=== PATIENT | female | born 1955 | race African-American/Black ===

== ENCOUNTER → 2016-06-03 | Day surgery (SDC) | payer SELFPAY ==
[~2016-06-03] MED LIST: ACETAMINOPHEN PO; ALBUTEROL17 GM; ALBUTEROL17 GM INH; ANTIVERT PO; ASPIRIN PO; ASPIRIN81 M2 PO; AZITHROMYCIN500 MG PO; BACTROBAN15 GM TOP; CARAFATE PO; ELIMITE60 GM TOP; FAMOTIDINE; FLEXERIL PO; HCTZ; HCTZ PO; HYDROCHLOROTHIA25 MG PO; K-TAB ER20 MEQ PO; KEFLEX PO; LISINOPRIL; LORTAB 5/500 TA1 TA1 PO; MEDROL4 MG/DOSE- PO; MICRO-K PO; PEPCID AC20 MG PO; PEPCID40 MG PO; PHENERGAN DM1 ML PO; PRILOSEC PO; RED CLOVER; TAMIFLU75 M1 PO; TRICOR PO; TYLENOL #3 PO; VICODIN 5/1 TAB 5/50 PO; WALGREENS PHARMACY
--- NOTE | ~2016-06-03 | OR ---
Unit #: [id number] #: [id number] Patient: MERVIN PORTILLO [id number] [address] [place], [place] [address] [id number] MR#: [id number] NAME: MERVIN PORTILLO ROOM: Date of Procedure: 06/03/2016 Admission Date: 06/03/2016 Surgeon: Tavon Wood M.D. : 1955 Attending Physician: Tavon Wood M.D. [facility] PREOPERATIVE DIAGNOSES The patient has presented with history of dyspepsia as well as personal history of colon polyps and history of hematochezia. PROCEDURES PERFORMED Upper gastrointestinal endoscopy and biopsy as well as colonoscopy with polypectomy. POSTOPERATIVE DIAGNOSES 1. For upper endoscopy, mild prepyloric antral gastritis. Otherwise, normal examination up to third part of duodenum. 2. For colonoscopy, the patient had total of 5 polyps, 2 in the transverse colon, 1 each in the sigmoid, descending, and ascending colon. All the polyps were sessile and ranged in size from 5 mm to 1.5 cm in size. All were removed using snare polypectomy, retrieved and sent for histology. The examination was otherwise normal up to cecum and terminal ileum. The quality of the prep was excellent. RECOMMENDATIONS Repeat colonoscopy in 5 years. SEDATION USED MAC. DESCRIPTION OF PROCEDURE Following detailed explanation of potential risks and complications of an upper endoscopy and colonoscopy, namely perforation, bleeding, and complications related to sedation, the patient was brought to GI lab and laid in the left lateral decubitus position. Lubricated tip of the Olympus video upper endoscope was passed through the bite block into the proximal esophagus under direct vision. The entire esophageal mucosa was examined and appeared normal. Z-line was nicely demarcated, there being no esophagitis or hiatus hernia. The scope was then advanced into the gastric cavity and the latter was insufflated. Mucosa of the fundus, body, and antrum examined and the patient was noted to have mild prepyloric antral erythema and erythematous streaks. Pylorus was intubated with visualization of the normal duodenal bulb and second and third part of the duodenum. Upon withdrawal and retroflexion, incisura, cardia, and greater curve examined and biopsy obtained from the antrum for CLOtest. The scope was then withdrawn in the distal esophagus. The entire esophageal mucosa was examined all the way up to pharynx. No additional findings noted. Unit #: [id number] #: [id number] Patient: MERVIN PORTILLO The examination table was then turned by 180 degrees and the patient was positioned for a colonoscopy. A digital rectal examination was performed, which was normal. Lubricated tip of the Olympus video colonoscope was inserted through the anus and advanced under direct vision. The scope was advanced and passed up to sigmoid into descending colon. No diverticula were seen in this area. The patient was noted to have polyps both during the antegrade examination and during withdrawal phase examination. The scope was then advanced all the way up to cecum with visualization of ileocecal valve and the appendiceal orifice. Preparation was excellent with good visualization and photodocumentation was obtained. Last few inches of terminal ileum also visualized after intubation of the ileocecal valve and appeared normal. Successive segments of the colonic mucosa were examined upon withdrawal. Total of 5 polyps were removed, 2 from the transverse colon, 1 each from the sigmoid, descending, and ascending colon. The largest polyp was in the sigmoid colon about 1.5 cm in size. All the polyps were retrieved and sent for histology. No additional polyps noted. The patient did not have any diverticulosis nor any hemorrhoids. The scope was then withdrawn. The patient returned to the recovery area. She tolerated the procedure without any postprocedure complications. Dictated by... hSaree Ortega TD: 06/04/2016 01:07 JOB #: [id number] CC: [facility] OPERATIVE REPORT Page 1 of 1 X Tavon Wood MD PROCEDURE OPERATIVE NOTE
== END | disposition home or self-care (01) ==
LOC: COPS 06:41
DX: D12.4 Benign neoplasm of descending colon (principal); D12.3 Benign neoplasm of transverse colon; D12.2 Benign neoplasm of ascending colon; D12.5 Benign neoplasm of sigmoid colon; K29.70 Gastritis, unspecified, without bleeding; F17.210 Nicotine dependence, cigarettes, uncomplicated; M19.90 Unspecified osteoarthritis, unspecified site; Z90.710 Acquired absence of both cervix and uterus; Z86.010 Personal history of colon polyps; Z90.89 Acquired absence of other organs; Z90.49 Acquired absence of other specified parts of digestive tract; Z86.73 Personal history of transient ischemic attack (TIA), and cerebral infarction without residual deficits; Z88.0 Allergy status to penicillin; Z88.2 Allergy status to sulfonamides; Z88.8 Allergy status to other drugs, medicaments and biological substances; Z79.82 Long term (current) use of aspirin; Z79.891 Long term (current) use of opiate analgesic; Z79.899 Other long term (current) drug therapy
CPT/HCPCS: 87077; 88305